=== PATIENT | male | born 1990 | race Caucasian/White ===

== ENCOUNTER 2017-08-14 03:07 | Emergency (ER) | payer OTHER ==
[~2017-08-14] VITALS: Ht 188 cm; Wt 108.9 kg
--- NOTE | 2017-08-14 03:12 | ED AMS/SEIZURE/WEAK/DIZZY ---
History of Present Illness General Chief Complaint: General Adult Stated Complaint: ?SEIZURE ? SYNCOPAL EPISODE Source: patient Exam Limitations: no limitations Vital Signs & Intake/Output Vital Signs & Intake/Output Vital Signs Date Time Temp Pulse Resp B/P B/P Pulse O2 O2 Flow FiO2 Mean Ox Delivery Rate 08/14 0352 98 Room Air 08/14 0311 96.7 93 18 121/60 100 Room Air Allergies Coded Allergies: MDX - Shellfish (SHELLFISH) (Mild, RASH 04/01/12) Reconcile Medications No Known Home Medications Triage Nurses Notes Reviewed? yes Onset: Abrupt Duration: minute(s): Timing: recent history Injury Environment: home Severity: moderate Modifying Factors: Improves With: rest. Associated Symptoms: back pain (DIZZINESS) HPI: 26 YO gentleman presents with mental status change. Per the medics, he had been drinking at the bar. He got up to go to the bathroom, and became dizzy. He threw up. The bar patrons found him pale. He may have had seizure like activity. 911 called. The medics found a BP in the 70's. "HE had a moment where he stared into space." He reports that he is starting to feel better. "I feel pretty good now." He relates how he had felt dizzy and nearly passed out in the bar. He had not eaten much today. He had more than 6 drinkis this evening. Past History Travel History Traveled to [place] past 21 day No Medical History Any Pertinent Medical History? none Surgical History Surgical History: none Psychosocial History What is your primary language Portuguese Family History Hx Contributory? No Review of Systems Review of Systems Constitutional: Reports: no symptoms. EENTM: Reports: no symptoms. Respiratory: Reports: no symptoms. Cardiovascular: Reports: no symptoms. GI: Reports: no symptoms. Genitourinary: Reports: no symptoms. Musculoskeletal: Reports: no symptoms. Skin: Reports: no symptoms. Neurological/Psychological: Reports: no symptoms. Hematologic/Endocrine: Reports: no symptoms. Immunologic/Allergic: Reports: no symptoms. All Other Systems: Reviewed and Negative Physical Exam Physical Exam General Appearance: well developed/nourished, no apparent distress Head: atraumatic, normal appearance Eyes: Bilateral: normal appearance, PERRL, EOMI. Ears, Nose, Throat: normal pharynx, normal ENT inspection Neck: normal inspection, supple, full range of motion Respiratory: normal breath sounds, chest non-tender, no respiratory distress, quiet respiration, lungs clear Cardiovascular: regular rate/rhythm Gastrointestinal: normal bowel sounds, soft, non-tender, no organomegaly Back: normal inspection, normal range of motion Extremities: normal range of motion Neurologic/Psych: no motor/sensory deficits, awake, alert, oriented x 3 Skin: intact, normal color, warm/dry Core Measures ACS in differential dx? No CVA/TIA Diagnosis No Sepsis Present: No Sepsis Focused Exam Completed? No Progress Differential Diagnosis: dehydration, drug intoxication, hypoglycemia, intracranial Hem., intracranial mass/tumor, sepsis, subarachnoid Hem. Plan of Care: Orders Procedure Date/time Status URINE DRUG SCREEN FOR ER ONLY 08/14 311 Complete TROPONIN LEVEL 08/14 311 Complete LIPASE 08/14 311 Complete HEPATIC FUNCTION PANEL 08/14 311 Complete ETHANOL 08/14 311 Complete CBC WITHOUT DIFFERENTIAL 08/14 311 Complete BASIC METABOLIC PANEL 08/14 311 Complete AMYLASE 08/14 311 Complete EKG 08/14 311 Active Laboratory Tests 08/14/17 0430: Urine Opiates Screen < 100.00, Methadone Screen < 40, Barbiturate Screen < 60, Ur Phencyclidine Scrn < 6.00, Amphetamines Screen < 100, U Benzodiazepines Scrn < 85, Urine Cocaine Screen < 50, Urine Cannabis Screen < 5.00 08/14/17 0323: Anion Gap 17 H, Estimated GFR > 60, BUN/Creatinine Ratio 16.0, Glucose 113 H, Calcium 9.4, Total Bilirubin 0.2, Direct Bilirubin 0.2, AST 26, ALT 39, Alkaline Phosphatase 54, Troponin I < 0.01, Total Protein 8.2, Albumin 4.8, Amylase 49, Lipase 64, CBC w Diff NO MAN DIFF REQ, RBC 4.42 L, MCV 87.5, MCH 29.4, MCHC 33.6, RDW 13.4, MPV 7.3 L, Gran % 52.8, Lymphocytes % 36.9, Monocytes % 7.8, Eosinophils % 2.0, Basophils % 0.5, Absolute Granulocytes 4.7, Absolute Lymphocytes 3.3, Absolute Monocytes 0.7 H, Absolute Eosinophils 0.2, Absolute Basophils 0, Serum Alcohol 28.0 Diagnostic Imaging: Viewed by Me: CT Scan. Discussed w/RAD: CT Scan. Radiology Impression: PATIENT: CHARLEY JOYCE PRESENT AGE: 26 PATIENT ACCOUNT NO: [id number] : 92 LOCATION: [facility] ORDERING PHYSICIAN: Aquiles Bingham MD SERVICE DATE: 08/14/17 EXAM TYPE: CAT - CT HEAD WO IV CONTRAST EXAMINATION: CT HEAD WITHOUT CONTRAST CLINICAL INFORMATION: Mental status change. Seizure. COMPARISON: None TECHNIQUE: Contiguous axial imaging was performed from the skull base to vertex without intravenous administration of contrast. DLP: 647.92 mGy-cm FINDINGS: There is no evidence of acute intracranial hemorrhage or territorial infarction. No abnormal mass effect or midline shift is seen. Odom to white matter differentiation is well preserved. No extra-axial fluid collections are identified. The ventricles are normal in size. There is no abnormal attenuation within the brain parenchyma. The osseous structures and soft tissues are normal. The mastoid air cells and visualized portions of the paranasal sinuses are well aerated. IMPRESSION: No acute intracranial pathology. DICTATED BY: Kojo Brooks MD DATE/ TIME DICTATED:08/14/17435 RN CASE MANAGER:POORNIMA DATE/TIME TRANSCRIBED: 08/14/17435 CONFIDENTIAL, DO NOT COPY WITHOUT APPROPRIATE AUTHORIZATION. < Electronically signed in Other Vendor System> SIGNED BY: Kojo Brooks MD 440 Initial ED EKG: NONSPECIFIC INTRAVENTRICULAR CONDUCTION DELAY. NO ACUTE CHANGES. Departure Departure Disposition: HOME OR SELF CARE Condition: Stable Clinical Impression Primary Impression: Vasovagal episode Referrals: Patient Has No Primary Care Dr (PCP/Family) Departure Forms: Customer Survey General Discharge Information Prescriptions: Current Visit Scripts No Known Home Medications Comments 08/14/17, 4:51AM.... Pt is feeling well, labs/head ct/ekg benign... episode likely a vasovagal episode due to etoh, dehydration.... after iv fluids, he is feeling well and would like to go home.
[2017-08-14 03:45] LABS: ABSOLUTE BASOPHIL COUNT 0 /CUMM (0.0-0.2); ABSOLUTE EOSINOPHIL COUNT 0.2 /CUMM (0.0-0.7); ABSOLUTE GRANULOCYTE CT 4.7 /CUMM (1.4-6.5); ABSOLUTE LYMPH COUNT 3.3 /CUMM (1.2-3.4); ABSOLUTE MONOCYTE COUNT 0.7 /CUMM (0.10-0.60); BASOPHIL % 0.5 % (0.0-2.0); GRANULOCYTE % 52.8 % (42.2-75.2); HEMATOCRIT 38.7 % (42-52); MEAN CORPUSCULAR HGB 29.4 PG (27.0-31.0); MEAN CORPUSCULAR HGB CONC 33.6 G/DL (33.0-37.0); MEAN CORPUSCULAR VOLUME 87.5 FL (80.0-94.0); MEAN PLATELET VOLUME 7.3 FL (7.4-10.4); PLATELET COUNT 300 /CUMM (130-400); RBC DISTRIBUTION WIDTH 13.4 % (11.5-14.5); RED BLOOD CELL CT 4.42 /CUMM (4.70-6.10)
--- NOTE | 2017-08-14 04:41 | CT SCAN REPORT ---
EXAMINATION: CT HEAD WITHOUT CONTRAST CLINICAL INFORMATION: Mental status change. Seizure. COMPARISON: None TECHNIQUE: Contiguous axial imaging was performed from the skull base to vertex without intravenous administration of contrast. DLP: 647.92 mGy-cm FINDINGS: There is no evidence of acute intracranial hemorrhage or territorial infarction. No abnormal mass effect or midline shift is seen. Odom to white matter differentiation is well preserved. No extra-axial fluid collections are identified. The ventricles are normal in size. There is no abnormal attenuation within the brain parenchyma. The osseous structures and soft tissues are normal. The mastoid air cells and visualized portions of the paranasal sinuses are well aerated. IMPRESSION: No acute intracranial pathology.
[2017-08-14 05:09] VITALS: BP 98/54
== END 2017-08-14 05:26 ==
LOC: ERH 03:07
PROVIDERS: Pediatrics
DX: R55 Syncope and collapse (principal)
CPT/HCPCS: 80307; 93005; 93010; 96360; 96361; G0480